=== PATIENT | female | born 1995 | race Caucasian/White ===

== ENCOUNTER 2017-10-23 20:57 | Emergency (ER) | payer OTHER ==
[~2017-10-23] VITALS: Ht 154.9 cm; Wt 63.5 kg
[~2017-10-23 20:57] MED LIST: CIPRO500 M1 PO; VICODIN 5-3001 EACH PO
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
[2017-10-24] MEDS ORDERED: IBUPROFEN600 M1 PO (00:28)
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
--- NOTE | 2017-10-24 01:11 | RADIOLOGY REPORT ---
EXAMINATION: XR TIBIA AND FIBULA, LEFT CLINICAL INFORMATION: Pain to left mahajan, rule out fracture COMPARISON: None TECHNIQUE: AP and lateral views of the left tibia and fibula were obtained. FINDINGS: Osseous alignment is anatomic. No acute fracture is seen. There is a tiny density overlying the posterior soft tissues of the mid leg on the lateral view which is suggestive of artifact, as no corresponding density is seen on the frontal view. No significant soft tissue swelling is seen. IMPRESSION: No evidence of fracture. Tiny density overlying the soft tissues posteriorly on the lateral view is suggestive of artifact, as no corresponding finding is seen on the frontal view.
[2017-10-24 01:15] VITALS: BP 132/82
== END 2017-10-24 01:27 ==
LOC: ERH 20:57
DX: S06.0X0A Concussion without loss of consciousness, initial encounter (principal); S80.12XA Contusion of left lower leg, initial encounter; V49.40XA Driver injured in collision with unspecified motor vehicles in traffic accident, initial encounter
CPT/HCPCS: 73590-LT; 81025